=== PATIENT | female | born 1985 | race Caucasian/White ===

== ENCOUNTER 2016-08-21 20:24 | Emergency (ER) | payer OTHER ==
[~2016-08-21] VITALS: Ht 167.6 cm; Wt 100.3 kg
[~2016-08-21 20:24] MED LIST: ALBU0.08 INH; ALBUAER19 INH; CLON0.5T3 PO; CYCL10TA6 PO; DOXE50CA3 PO; FLUT110A INH; FRS/40 PO; HYDR-5688 PO; LTD/40 PO; MORP1TAB12 PO; NAPR-1169 PO; NYST80OI PO; PANT1TAB48 PO; PRAZ2CAP3 PO; PROM25TA9 PO; PROP10TA7 PO; ROPI1TAB PO; TIZA1CAP3 PO
[2016-08-21 20:34] VITALS: TEMP 36.9; Ht 167.6 cm; Wt 100.3 kg
[2016-08-21] MEDS ORDERED: SODIUM CHLORIDE 0.9% 1000ML 1,000 ML IV STA (22:26)
--- NOTE | 2016-08-21 22:34 | EMERGENCY ROOM VISIT NOTE ---
ED Visit Note First contact with patient: 22:09 Resident Physician Supervision Note: I was present with Dr. Harley Carrero during the history and exam. I discussed the case with the resident and agree with the findings and plan as documented in the note. Any exceptions or clarifications are listed here: None Documented By: Renato Dominique
--- NOTE | 2016-08-21 22:42 | EMERGENCY ROOM VISIT NOTE ---
History First contact with patient: 22:09 Chief Complaint: GI ASSESSMENT Stated Complaint: KIDNEY STONE??,NAUSEA,VOMITING & DIARRHEA W/BLOOD Nursing Triage Summary: pt reports [place] X 2 weeks to PCP today noticing some blood in vomit and stool today "I also think I have a kidney stone " I was to [facility] last week for same History of Present Illness The patient is a 30 year old female w/ hx of Nephrolithiasis, Chronic Back pain on Narcotics (Morphine, Dilaudid) Bipolar disorder, PTSD hx of appendectomy, cholecystectomy who presents to the Emergency Room with complaints of 2 week hx of abdominal pain, n/v. Pain is constant, 10/10 , LUQ pain. She went to [facility] last week for evaluation ands was given Zofran and managed as a gastroenteritis and sent home. Since 08/18, She notes additional symptoms including N/V with blood in vomit, Dysuria, hematuria, diarrhea with bright red blood in stool. She also reports DELONG, SOB. Pt denies fevers, chills, chest pain, palpitation. She reports she has not taken her narcotics in week because she has not been able keep pills down. Patient is not on anticoagulation Review of Systems See HPI for pertinent positives & negatives. A total of 10 systems reviewed and were otherwise negative. Past Medical/Surgical History Medical Problems: (1) Anxiety (2) ARF (acute renal failure) (3) Asthma, moderate persistent (4) Bipolar 1 disorder (5) Breast abscess (6) Bright red blood per rectum (7) Chest pain (8) Depression (9) GERD (gastroesophageal reflux disease) (10) GI bleed (11) Gross hematuria (12) Hematemesis (13) Hepatitis C (14) History of MRSA infection (15) PTSD (post-traumatic stress disorder) (16) Recurrent nephrolithiasis Surgical Problems: (1) H/O adenoidectomy (2) History of appendectomy (3) History of section (4) History of cholecystectomy (5) History of tubal ligation (6) S/P IGOR (total abdominal hysterectomy) Family History Diabetes mellitus Hypertension Kidney disease Kidney stones Social History Smoking Status: Current Every Day Smoker Alcohol Use: none Drug Use: none Marital Status: in relationship Housing Status: lives with significant other Current/Historical Medications Scheduled Carisoprodol (Soma), 350 MG PO TID Chlorpromazine Hcl (Thorazine), 25 MG PO HS Chlorpromazine Hcl (Thorazine), 50 MG PO HS Clonazepam (Clonazepam), 1 MG PO BID Gabapentin (Gabapentin), 600 MG PO BID Lurasidone Hcl (Latuda), 60 MG PO HS Mirtazapine (Remeron), 30 MG PO HS Morphine Sulfate (Morphine Sulfate ER), 15 MG PO BID Propranolol (Inderal), 10 MG PO TID Ropinirole Hydrochloride (Requip), 1 MG PO TID [Unknown Neuropathy], 100 MG PO HS Scheduled PRN Albuterol (Ventolin Hfa), 2 PUFFS INH Q4 PRN for Wheezing Albuterol Sulf (Proventil 0.083% 2.5MG/3ML), 2.5 MG INH Q4 PRN for Wheezing Hydromorphone Hcl (Dilaudid), 2 MG PO Q4 PRN for Pain Promethazine (Phenergan ), 12.5 MG PO Q4H PRN for Nausea Allergies Coded Allergies: Buspirone (Verified Allergy, Severe, SWELLING, "CAN'T BREATH", 08/21/16) Hydroxyzine (Verified Allergy, Intermediate, SWELLING, 08/21/16) Shellfish (Verified Allergy, Intermediate, SHORTNESS OF BREATH, 08/21/16) Topiramate (Verified Allergy, Intermediate, SOB AND SWELLING, 08/21/16) Valproic Acid (Verified Allergy, Intermediate, PANIC ATTACK, 08/21/16) Venlafaxine (Verified Allergy, Mild, ANXIETY, 08/21/16) Acetaminophen (Verified Allergy, Unknown, DOSEN'T TAKE DUE TO HEPATITIS, ) Amitriptyline (Verified Allergy, Unknown, swelling, 08/21/16) Amoxicillin (Verified Allergy, Unknown, swelling, 08/21/16) Dichloralphenazone (Verified Allergy, Unknown, swelling, 08/21/16) Diphenhydramine (Verified Allergy, Unknown, swelling, 08/21/16) Ezetimibe (Verified Allergy, Unknown, swelling, 08/21/16) Fish-derived Products (Verified Allergy, Unknown, swelling, 08/21/16) Ibuprofen (Verified Allergy, Unknown, swelling, 08/21/16) Isometheptene (Verified Allergy, Unknown, swelling, 08/21/16) Ketorolac Tromethamine (Verified Allergy, Unknown, swelling, 08/21/16) Meperidine (Verified Allergy, Unknown, swelling, 08/21/16) Metoclopramide (Verified Allergy, Unknown, swelling, 08/21/16) Nalbuphine (Verified Allergy, Unknown, swelling, 08/21/16) Penicillins (Verified Allergy, Unknown, swelling, 08/21/16) Prochlorperazine (Verified Allergy, Unknown, swelling, 08/21/16) Risperidone (Verified Allergy, Unknown, swelling, 08/21/16) Simvastatin (Verified Allergy, Unknown, swelling, 08/21/16) Sumatriptan (Verified Allergy, Unknown, swelling, 08/21/16) Celecoxib (Verified Adverse Reaction, Intermediate, SWELLING, 08/21/16) Physical Exam Vital Signs Date Time Temp Pulse Resp B/P Pulse Ox O2 Delivery O2 Flow Rate FiO2 08/22/16 01:34 77 16 144/89 94 Room Air 08/22/16 00:15 74 08/22/16 00:10 71 24 127/77 95 Room Air 08/21/16 22:58 75 18 127/83 97 Room Air 08/21/16 20:34 36.9 100 18 111/76 100 Room Air Physical Exam GENERAL: alert, well appearing, well nourished, no distress, non-toxic NECK: supple, no nuchal rigidity, no adenopathy, non-tender LUNGS: Clear to auscultation. Normal chest wall mechanics HEART: no murmurs, S1 normal and S2 normal ABDOMEN: abdomen soft, TTP LUQ, normo-active bowel sounds, no masses, no rebound or guarding. BACK: Back is symmetrical on inspection and there is no deformity, no midline tenderness, no CVA tenderness. SKIN: no rashes and no bruising UPPER EXTREMITIES: upper extremities are grossly normal. LOWER EXTREMITIES: No pitting edema. Medical Decision & Procedures Laboratory Results 08/21/16 23:45 Red Blood Count 4.47, Mean Corpuscular Volume 80.8, Mean Corpuscular Hemoglobin 26.2, Mean Corpuscular Hemoglobin Concent 32.4, Mean Platelet Volume 10.3, Neutrophils (%) (Auto) 34.8, Lymphocytes (%) (Auto) 55.2, Monocytes (%) (Auto) 6.2, Eosinophils (%) (Auto) 3.6, Basophils (%) (Auto) 0.2, Neutrophils # (Auto) 1.62, Lymphocytes # (Auto) 2.58, Monocytes # (Auto) 0.29, Eosinophils # (Auto) 0.17, Basophils # (Auto) 0.01 08/21/16 23:45 Test 08/21/16 23:45 White Blood Count 4.67 K/uL (4.8-10.8) Red Blood Count 4.47 M/uL (4.2-5.4) Hemoglobin 11.7 g/dL (12.0-16.0) Hematocrit 36.1 % (37-47) Mean Corpuscular Volume 80.8 fL (80-100) Mean Corpuscular Hemoglobin 26.2 pg (25-34) Mean Corpuscular Hemoglobin Concent 32.4 g/dl (32-36) Platelet Count 176 K/uL (130-400) Mean Platelet Volume 10.3 fL (7.4-10.4) Neutrophils (%) (Auto) 34.8 % Lymphocytes (%) (Auto) 55.2 % Monocytes (%) (Auto) 6.2 % Eosinophils (%) (Auto) 3.6 % Basophils (%) (Auto) 0.2 % Neutrophils # (Auto) 1.62 K/uL (1.4-6.5) Lymphocytes # (Auto) 2.58 K/uL (1.2-3.4) Monocytes # (Auto) 0.29 K/uL (0.11-0.59) Eosinophils # (Auto) 0.17 K/uL (0-0.5) Basophils # (Auto) 0.01 K/uL (0-0.2) RDW Standard Deviation 48.7 fL (36.4-46.3) RDW Coefficient of Variation 16.4 % (11.5-14.5) Immature Granulocyte % (Auto) 0.0 % Immature Granulocyte # (Auto) 0.00 K/uL (0.00-0.02) Red Blood Cell Morphology Unremarkable Anion Gap 9.0 mmol/L (3-11) Est Creatinine Clear Calc Drug Dose 135.9 ml/min Estimated GFR () 130.6 Estimated GFR (Non- 112.7 BUN/Creatinine Ratio 13.5 (10-20) Calcium Level 8.7 mg/dl (8.5-10.1) Total Bilirubin 0.4 mg/dl (0.2-1) Direct Bilirubin 0.1 mg/dl (0-0.2) Aspartate Amino Transf (AST/SGOT) 19 U/L (15-37) Alanine Aminotransferase (ALT/SGPT) 29 U/L (12-78) Alkaline Phosphatase 62 U/L (45-117) Total Protein 6.3 gm/dl (6.4-8.2) Albumin 3.3 gm/dl (3.4-5.0) Lipase 137 U/L (73-393) Medications Administered Medications (Trade) Dose Ordered Sig/Gray Route Start Time Stop Time Status Last Admin Dose Admin Sodium Chloride (Nss 1000ml) 1,000 ml @ 999 mls/hr Q1H1M STAT IV 08/21/16 22:26 08/21/16 23:26 DC 08/21/16 23:35 999 MLS/HR Morphine Sulfate (MoRPHine SULFATE INJ) 4 mg Q15M PRN IV 08/21/16 23:45 09/04/16 23:44 08/22/16 00:33 4 MG Ondansetron HCl (Zofran Inj) 4 mg NOW STAT IV 08/21/16 23:36 08/21/16 23:48 DC 08/22/16 00:06 4 MG Potassium Chloride (Klor-Con M10) 20 meq NOW STAT PO 08/22/16 00:20 08/22/16 00:24 DC 08/22/16 00:33 20 MEQ Hydromorphone HCl (Dilaudid Inj) 0.5 mg NOW STAT IV 08/22/16 01:23 08/22/16 01:24 DC 08/22/16 01:32 0.5 MG Medical Decision Differential diagnoses includes but is not limited to gastritis, peptic ulcer disease, GERD, gallbladder disease, pancreatitis, small bowel obstruction, acute coronary syndrome, pericarditis, ischemic bowel, irritable bowel disease, irritable bowel syndrome, appendicitis, diverticulitis, malignancy, hernia, urinary tract infection, torsion, perforation, trauma, infectious. 30 yo F w/ hx of chronic back pain on morphine Dilaudid at home, hx of cholecystectomy, appendectomy, complaining 2 wk hx of abdominal pain, flank pain, dysuria, hematuria, hematochezia Abdominal Pain -CBC: H/H 11.7/36.1 otherwise unremarkable - Given morphine 4mg x2 - given IV Dilaudid .5 mg - given IV Zofran 4 mg - Stool sample not provided by patient -Urine sample not provided by patient Mild Hypokalemia - Given Oral K 20 meq Patient discharged with followup to [facility] this week sent home with Phenergan prescription 12.5 mg q4 prn Impression Primary Impression: Abdominal pain Additional Impressions: Nausea & vomiting Flank pain Departure Information Dispostion Home / Self-Care Prescriptions Promethazine (Phenergan ) 12.5 Mg Tab 12.5 MG PO Q4H Y for Nausea for 30 Days, #120 TAB Prov: Harley Carrero MD 08/22/16 Referrals Héctor Baxter PA-C (PCP) Patient Instructions My [facility] Resident Tracking Resident Involvement: Resident Care Provided Care Provided: Adult ED Problem Qualifiers
[2016-08-21] MEDS ORDERED: NRN600 PO (23:22)
[2016-08-21] MEDS ORDERED: MRPSR/15 PO (23:22)
[2016-08-21] MEDS ORDERED: MIRT30TA3 PO (23:22)
[2016-08-21] MEDS ORDERED: KLN1X PO (23:22)
[2016-08-21] MEDS ORDERED: HYDR2TAB48 PO (23:22)
[2016-08-21] MEDS ORDERED: PROP10TA7 PO (23:24)
[2016-08-21] MEDS ORDERED: ROPI1TAB PO (23:24)
[2016-08-21] MEDS ORDERED: [UNRECOGNIZED DRUG - REMARK] PO (23:26)
[2016-08-21] MEDS ORDERED: ONDANSETRON INJ 2 MG/ML 2 ML VIAL IV STA (23:36)
[2016-08-21 23:52] LABS: HEMATOCRIT 36.1 % (37-47); MEAN CELL VOLUME 80.8 fL (80-100); MEAN CORPUSCULAR HEMOGLOBIN 26.2 pg (25-34); MEAN CORPUSCULAR HGB CONC 32.4 g/dl (32-36); MEAN PLATELET VOLUME 10.3 fL (7.4-10.4); PLATELET COUNT 176 K/uL (130-400); RED BLOOD COUNT 4.47 M/uL (4.2-5.4); WHITE BLOOD COUNT 4.67 K/uL (4.8-10.8)
[2016-08-22] MEDS: MoRPHine SULFATE 4 MG/ML 1 ML CARP\\VIAL IV PRN ×2 (00:07→00:33)
[2016-08-22 00:14] LABS: BUN/CREATININE RATIO 13.5 (10-20); CALCIUM 8.7 mg/dl (8.5-10.1); CREATININE 0.71 mg/dl (0.60-1.20); POTASSIUM 3.3 mmol/L (3.5-5.1)
[2016-08-22] MEDS ORDERED: POTASSIUM CHLORIDE 10 MEQ TABCR PO STA (00:20)
[2016-08-22 00:21] LABS: BASO % 0.2 %; BASO ABS # 0.01 K/uL (0-0.2); COMPLETE YES; EOS % 3.6 %; LYMPH % 55.2 %; LYMPH ABS # 2.58 K/uL (1.2-3.4); MONO % 6.2 %; NEUT % 34.8 %
[2016-08-22] MEDS ORDERED: HYDROmorphone INJ 0.5 MG/0.5 ML SYR IV STA (01:23)
[2016-08-22] MEDS ORDERED: PROM12.57 PO (01:41)
[2016-08-22 02:00] VITALS: BP 132/93; PULSE 76; O2SAT 95
== END 2016-08-22 02:00 | disposition home or self-care (01) ==
LOC: C.EDB 20:25
DX: R10.12 Left upper quadrant pain (principal); R11.2 Nausea with vomiting, unspecified; N17.9 Acute kidney failure, unspecified; J45.909 Unspecified asthma, uncomplicated; F31.9 Bipolar disorder, unspecified; K21.9 Gastro-esophageal reflux disease without esophagitis; B19.20 Unspecified viral hepatitis C without hepatic coma; Z86.14 Personal history of Methicillin resistant Staphylococcus aureus infection; F43.10 Post-traumatic stress disorder, unspecified; Z87.442 Personal history of urinary calculi; Z83.3 Family history of diabetes mellitus; Z82.49 Family history of ischemic heart disease and other diseases of the circulatory system; Z84.1 Family history of disorders of kidney and ureter; F17.210 Nicotine dependence, cigarettes, uncomplicated; Z79.899 Other long term (current) drug therapy

== ENCOUNTER 2016-09-05 16:26 | Emergency (ER) | payer OTHER ==
[~2016-09-05] VITALS: Ht 167.6 cm; Wt 107.7 kg
[~2016-09-05 16:26] MED LIST changes: -ALBU0.08 INH; -ALBUAER19 INH; -CLON0.5T3 PO; -CYCL10TA6 PO; -DOXE50CA3 PO; -FLUT110A INH; -FRS/40 PO; -HYDR-5688 PO; +HYDR2TAB48 PO; +KLN1X PO; -LTD/40 PO; +MIRT30TA3 PO; -MORP1TAB12 PO; +MRPSR/15 PO; -NAPR-1169 PO; +NRN600 PO; -NYST80OI PO; -PANT1TAB48 PO; -PRAZ2CAP3 PO; +PROM12.57 PO; -PROM25TA9 PO; -TIZA1CAP3 PO; +[UNRECOGNIZED DRUG - REMARK] PO
[2016-09-05 16:37] VITALS: TEMP 36.7; Ht 167.6 cm; Wt 107.7 kg
[2016-09-05] MEDS ORDERED: PROMETHAZINE HCL INJ 25 MG in SODIUM CHLORIDE 0.9% 50ML 50 ML IV STA (16:56)
[2016-09-05] MEDS ORDERED: SODIUM CHLORIDE 0.9% 1000ML 1,000 ML IV STA (16:56)
[2016-09-05] MEDS ORDERED: ALPR1TAB3 PO (17:18)
[2016-09-05] MEDS ORDERED: CLON0.5T3 PO (17:18)
[2016-09-05] MEDS ORDERED: SUCR1TAB29 PO (17:18)
[2016-09-05] MEDS ORDERED: MORP1CAP PO (17:18)
[2016-09-05] MEDS ORDERED: ZONI100C39 PO (17:19)
[2016-09-05] MEDS ORDERED: GI COCKTAIL PO STA (17:35)
[2016-09-05] MEDS ORDERED: FAMOTIDINE 20 MG TAB PO STA (17:35)
[2016-09-05] MEDS ORDERED: SUCRALFATE 1 GM TAB PO STA (17:35)
--- NOTE | 2016-09-05 17:43 | EMERGENCY ROOM VISIT NOTE ---
History Report prepared by Jose De Jesus: Renée Salamanca Under the Supervision of: Dr. Sai Bhatt M.D. First contact with patient: 17:21 Chief Complaint: ABDOMINAL PAIN Stated Complaint: VOMITING BLOOD,EDEMA,BLOODY URINE,ABD PAIN,UR PAIN Nursing Triage Summary: pt states "look at my feet they are swelling, I have pain over my liver and kidney" pain for 2 days saw a PA today but a PA can't do anything. They told me to come here immediatly to be taken care of. this is different belly pain. pt on pain management History of Present Illness The patient is a 30 year old female who presents to the Emergency Room with complaints of worsening edema to the bilateral legs starting 2 days [employer]. The patient states that 2 day ago she noticed that she had swelling in her feet and it has since gone up her legs to her knees. She states that she is now unable to bend her knees secondary to the swelling. The patient states she also has pain in the right upper abdominal quadrant over her liver which is radiating into her back. The patient states that she also has been vomiting and unable to keep her medications down. She states that she has also felt like she has had an increase in frequency for urination and that she sometimes has blood in her urine. The patient states that has had a cholecystectomy, appendectomy and hysterectomy. The patient states that she also has hepatitis C. Source of History: patient Onset: 2 days [employer] Position: leg (bilateral), knee (bilateral) Timing: worsening Associated Symptoms: + abdominal pain (RUQ), + back pain, + urinary symptoms (urinary frequency, blood in urine) Note: Associated symptoms: unable to bend knees, Review of Systems See HPI for pertinent positives & negatives. A total of 10 systems reviewed and were otherwise negative. Past Medical & Surgical Medical Problems: (1) Anxiety (2) ARF (acute renal failure) (3) Asthma, moderate persistent (4) Bipolar 1 disorder (5) Breast abscess (6) Bright red blood per rectum (7) Chest pain (8) Depression (9) GERD (gastroesophageal reflux disease) (10) GI bleed (11) Gross hematuria (12) Hematemesis (13) Hepatitis C (14) History of MRSA infection (15) PTSD (post-traumatic stress disorder) (16) Recurrent nephrolithiasis Surgical Problems: (1) H/O adenoidectomy (2) History of appendectomy (3) History of section (4) History of cholecystectomy (5) History of tubal ligation (6) S/P IGOR (total abdominal hysterectomy) Family History Diabetes mellitus Hypertension Kidney disease Kidney stones Social History Smoking Status: Current Every Day Smoker Alcohol Use: none Drug Use: none Marital Status: in relationship Housing Status: lives with significant other Current/Historical Medications Scheduled Alprazolam (Xanax), 1 MG PO TID Carisoprodol (Soma), 350 MG PO TID Chlorpromazine Hcl (Thorazine), 25 MG PO HS Chlorpromazine Hcl (Thorazine), 50 MG PO HS Gabapentin (Gabapentin), 600 MG PO TID Lurasidone Hcl (Latuda), 60 MG PO HS Mirtazapine (Remeron), 30 MG PO HS Morphine Sulfate (Arabella), 20 MG PO BID Ondasetron Odt (Zofran Odt), 4 MG SL Q6H Propranolol (Inderal), 10 MG PO TID Ropinirole Hydrochloride (Requip), 1 MG PO TID Sucralfate (Carafate), 1 GM PO ACHS Sulfa/Trimethoprim (Bactrim Ds 800MG/160MG), 1 TAB PO BID Zonisamide (Zonegran), 200 MG PO HS Scheduled PRN Albuterol (Ventolin Hfa), 2 PUFFS INH Q4 PRN for Wheezing Albuterol Sulf (Proventil 0.083% 2.5MG/3ML), 2.5 MG INH Q4 PRN for Wheezing Clonazepam (Klonopin), 0.5 MG PO BID PRN for Anxiety Hydromorphone Hcl (Dilaudid), 2 MG PO Q4 PRN for Pain Promethazine (Phenergan ), 12.5 MG PO Q4H PRN for Nausea Allergies Coded Allergies: Buspirone (Verified Allergy, Severe, SWELLING, "CAN'T BREATH", 08/21/16) Hydroxyzine (Verified Allergy, Intermediate, SWELLING, 08/21/16) Shellfish (Verified Allergy, Intermediate, SHORTNESS OF BREATH, 08/21/16) Topiramate (Verified Allergy, Intermediate, SOB AND SWELLING, 08/21/16) Valproic Acid (Verified Allergy, Intermediate, PANIC ATTACK, 08/21/16) Venlafaxine (Verified Allergy, Mild, ANXIETY, 08/21/16) Acetaminophen (Verified Allergy, Unknown, DOSEN'T TAKE DUE TO HEPATITIS, ) Amitriptyline (Verified Allergy, Unknown, swelling, 08/21/16) Amoxicillin (Verified Allergy, Unknown, swelling, 08/21/16) Dichloralphenazone (Verified Allergy, Unknown, swelling, 08/21/16) Diphenhydramine (Verified Allergy, Unknown, swelling, 08/21/16) Ezetimibe (Verified Allergy, Unknown, swelling, 08/21/16) Fish-derived Products (Verified Allergy, Unknown, swelling, 08/21/16) Ibuprofen (Verified Allergy, Unknown, swelling, 08/21/16) Isometheptene (Verified Allergy, Unknown, swelling, 08/21/16) Ketorolac Tromethamine (Verified Allergy, Unknown, swelling, 08/21/16) Meperidine (Verified Allergy, Unknown, swelling, 08/21/16) Metoclopramide (Verified Allergy, Unknown, swelling, 08/21/16) Nalbuphine (Verified Allergy, Unknown, swelling, 08/21/16) Penicillins (Verified Allergy, Unknown, swelling, 08/21/16) Prochlorperazine (Verified Allergy, Unknown, swelling, 08/21/16) Risperidone (Verified Allergy, Unknown, swelling, 08/21/16) Simvastatin (Verified Allergy, Unknown, swelling, 08/21/16) Sumatriptan (Verified Allergy, Unknown, swelling, 08/21/16) Celecoxib (Verified Adverse Reaction, Intermediate, SWELLING, 08/21/16) Physical Exam Vital Signs Date Time Temp Pulse Resp B/P Pulse Ox O2 Delivery O2 Flow Rate FiO2 09/05/16 21:08 78 18 106/61 96 09/05/16 19:54 65 18 109/61 100 Room Air 09/05/16 18:38 72 09/05/16 18:22 75 21 97 Room Air 09/05/16 18:21 97 Room Air 09/05/16 16:37 36.7 100 18 120/80 96 Room Air Physical Exam GENERAL: Patient is a healthy-appearing well-nourished HEAD: Normocephalic atraumatic EYES: Ocular movements intact pupils equal and react to light OROPHARYNX mucous membranes are moist no exudates present no erythema or edema present NECK: Supple no nuchal rigidity CHEST: Good equal expansion LUNGS: Clear and equal to auscultation CARDIAC: Normal S1 and S2 ABDOMEN: Soft, nontender on examination, no guarding BACK: No CVA tenderness EXTREMITIES: No pain upon palpation normal muscle strength in all groups no clubbing cyanosis or edema NEURO: Patient is following commands is answering questions appropriately. Alert and oriented x3 Cranial Nerves 2-12 grossly intact Medical Decision & Procedures ER Provider Diagnostic Interpretation: X-ray results as stated below per interpretation by me and the radiologist: CHEST AND ABDOMEN 2 VIEWS HISTORY: Pt c/o epigastric pain COMPARISON: Chest x-ray and abdomen and pelvis CT 05/01/2016. FINDINGS: The lungs are clear. The cardiomediastinal silhouette is within normal limits. There is no pneumoperitoneum or pneumatosis. The bowel gas pattern is unremarkable. No evidence for bowel obstruction. No pathologic calcifications. Cholecystectomy. Suture material within the right lower quadrant consistent with prior appendectomy. Moderate to large amount well-formed stool seen within the colon. IMPRESSION: 1. No acute process within the chest. No evidence for bowel obstruction. 2. Prior cholecystectomy and appendectomy. 3. Moderate to large amount of well-formed stool seen within the colon. 4. No renal or ureteral calculi. Electronically signed by: Andrés Kirkpatrick M.D. 09/05/2016 8:15 PM Dictated Date/Time: 09/05/2016 8:12 PM US results as stated below per my review and radiologist interpretation: BILATERAL LOWER EXTREMITY VENOUS DOPPLER HISTORY: Pt c/o B/l lower extremity pain COMPARISON STUDY: None. FINDINGS: There is normal compressibility, flow, and augmentation within the bilateral lower extremity deep venous systems. IMPRESSION: No DVT within the right or left lower extremity. Electronically signed by: Andrés Kirkpatrick M.D. 09/05/2016 7:43 PM Dictated Date/Time: 09/05/2016 7:43 PM Laboratory Results 09/05/16 18:30 Red Blood Count 3.86, Mean Corpuscular Volume 81.9, Mean Corpuscular Hemoglobin 26.2, Mean Corpuscular Hemoglobin Concent 32.0, Mean Platelet Volume 9.5, Neutrophils (%) (Auto) 41.5, Lymphocytes (%) (Auto) 44.4, Monocytes (%) (Auto) 8.3, Eosinophils (%) (Auto) 5.5, Basophils (%) (Auto) 0.3, Neutrophils # (Auto) 1.60, Lymphocytes # (Auto) 1.71, Monocytes # (Auto) 0.32, Eosinophils # (Auto) 0.21, Basophils # (Auto) 0.01 09/05/16 18:30 Test 09/05/16 17:55 09/05/16 18:30 Urine Color YELLOW Urine Appearance CLOUDY (CLEAR) Urine pH 7.5 (4.5-7.5) Urine Specific [place] 1.017 (1.000-1.030) Urine Protein NEG (NEG) Urine Glucose (UA) NEG (NEG) Urine Ketones NEG (NEG) Urine Occult Blood NEG (NEG) Urine Nitrite NEG (NEG) Urine Bilirubin NEG (NEG) Urine Urobilinogen NEG (NEG) Urine Leukocyte Esterase SMALL (NEG) Urine WBC (Auto) 10-30 /hpf (0-5) Urine RBC (Auto) 0-4 /hpf (0-4) Urine Hyaline Casts (Auto) 1-5 /lpf (0-5) Urine Epithelial Cells (Auto) >30 /lpf (0-5) Urine Bacteria (Auto) 2+ (NEG) White Blood Count 3.85 K/uL (4.8-10.8) Red Blood Count 3.86 M/uL (4.2-5.4) Hemoglobin 10.1 g/dL (12.0-16.0) Hematocrit 31.6 % (37-47) Mean Corpuscular Volume 81.9 fL (80-100) Mean Corpuscular Hemoglobin 26.2 pg (25-34) Mean Corpuscular Hemoglobin Concent 32.0 g/dl (32-36) Platelet Count 219 K/uL (130-400) Mean Platelet Volume 9.5 fL (7.4-10.4) Neutrophils (%) (Auto) 41.5 % Lymphocytes (%) (Auto) 44.4 % Monocytes (%) (Auto) 8.3 % Eosinophils (%) (Auto) 5.5 % Basophils (%) (Auto) 0.3 % Neutrophils # (Auto) 1.60 K/uL (1.4-6.5) Lymphocytes # (Auto) 1.71 K/uL (1.2-3.4) Monocytes # (Auto) 0.32 K/uL (0.11-0.59) Eosinophils # (Auto) 0.21 K/uL (0-0.5) Basophils # (Auto) 0.01 K/uL (0-0.2) RDW Standard Deviation 51.3 fL (36.4-46.3) RDW Coefficient of Variation 17.0 % (11.5-14.5) Immature Granulocyte % (Auto) 0.0 % Immature Granulocyte # (Auto) 0.00 K/uL (0.00-0.02) Anion Gap 7.0 mmol/L (3-11) Est Creatinine Clear Calc Drug Dose 159.1 ml/min Estimated GFR () 137.6 Estimated GFR (Non- 118.7 BUN/Creatinine Ratio 10.5 (10-20) Calcium Level 8.4 mg/dl (8.5-10.1) Total Bilirubin 0.1 mg/dl (0.2-1) Aspartate Amino Transf (AST/SGOT) 24 U/L (15-37) Alanine Aminotransferase (ALT/SGPT) 22 U/L (12-78) Alkaline Phosphatase 69 U/L (45-117) Total Creatine Kinase 244 U/L (26-192) Creatine Kinase MB 2.2 ng/ml (0.5-3.6) Creatine Kinase MB Ratio 0.9 (0-3.0) Troponin I < 0.015 ng/ml (0-0.045) Pro-B-Type Natriuretic Peptide 681 pg/ml (0-450) Total Protein 5.8 gm/dl (6.4-8.2) Albumin 3.0 gm/dl (3.4-5.0) Globulin 2.8 gm/dl (2.5-4.0) Albumin/Globulin Ratio 1.1 (0.9-2) Labs reviewed by ED physician. Medications Administered Medications (Trade) Dose Ordered Sig/Gray Route Start Time Stop Time Status Last Admin Dose Admin Famotidine (Pepcid Tab) 20 mg NOW STAT PO 09/05/16 17:35 09/05/16 17:39 DC 09/05/16 17:50 20 MG Sucralfate (Carafate Tab) 1 gm NOW STAT PO 09/05/16 17:35 09/05/16 17:39 DC 09/05/16 17:49 1 GM Lidocaine HCl (Viscous Lidocaine 2% Soln) 20 ml STK-MED ONCE .ROUTE 09/05/16 17:53 09/05/16 17:54 DC 09/05/16 17:50 20 ML Al Hydroxide/Mg Hydroxide (Maalox Susp) 30 ml STK-MED ONCE .ROUTE 09/05/16 17:53 09/05/16 17:54 DC 09/05/16 17:50 30 ML Trimethoprim/ Sulfamethoxazole (Septra Ds 800/ 160MG Tab) 1 tab NOW STAT PO 09/05/16 18:19 09/05/16 18:20 DC 09/05/16 18:41 1 TAB Dicyclomine HCl (Bentyl Inj) 20 mg NOW ONCE IM 09/05/16 18:30 09/05/16 18:31 DC 09/05/16 18:42 20 MG Ondansetron HCl (Zofran Odt) 4 mg ONE STAT PO 09/05/16 18:21 09/05/16 18:23 DC 09/05/16 18:41 4 MG Magnesium Citrate (Citrate Of Magnesia Soln) 296 ml NOW STAT PO 09/05/16 20:17 09/05/16 20:18 DC 09/05/16 20:17 296 ML Ondansetron HCl (ZOFRAN ODT 4MG Home Pack) 1 homepack UD ONCE PO 09/05/16 20:30 09/05/16 20:32 DC 09/05/16 20:37 1 HOMEPACK ECG Indication: abdominal pain Rate (beats per minute): 73 Rhythm: normal sinus Findings: no acute ischemic change, no ectopy ED Course 1729: Past medical records reviewed. The patient was evaluated in room C1B. A complete history and physical examination was performed. 1735: Ordered GI Cocktail 24 ml PO. 1753: The nursing staff informed me that the patient stated that after receiving the medication s, that she was going to take her own medications. 1818: I reevaluated the patent and she states she is still in pain. I repeated the abdominal examination on the patient and it was nontender 181: Ordered Trimethoprim/ Sulfamethoxazole 1 tab PO, Rocephin Inj 1 gm IV. 182: Ordered Zofran Odt 4 mg PO, Bentyl Inj 20 mg IM. 1830: Ordered Bentyl Inj 20 mg IM. 2017: Ordered Citrate of Magnesia Soln 296 ml PO. 2029: Ordered Ondansetron HCl 1 homepack PO. 2034: Upon reexamination the patient is hemodynamically stable. I discussed results and treatment plan with the patient. She verbalizes agreement and understanding. The patient is ready for discharge. Medical Decision Differential diagnosis: Etiologies such as DVT, musculoskeletal, infection, joint effusion, trauma, lymphedema, idiopathic, CHF, as well as others were entertained. This is a 30-year-old female who presents emergency department complaining of epigastric pain. The patient has seen multiple doctors within the past 4 days and has a large amount of narcotic medication prescribed to her from a doctor in [place]. In addition the patient was recently at [facility] 2 days ago and apparently was there before her visit today. I will note that she is on the no narcotics treatment plan. For this reason the patient was given a GI cocktail, Pepcid and Carafate. She has a normal CBC normal renal profile normal liver profile normal lipase. Serial abdominal examinations were performed on the patient in the [facility] department and no tended patient exhibit surgical abdomen. The patient was requesting more pain medication and therefore was given Bentyl. She does appear to have a urinary tract infection and was also given Bactrim. The patient was sent for ultrasounds of her legs as she is complaining of bilateral swelling. This did not show any evidence of a DVT and the patient has no evidence of congestive heart failure on her EKG or chest x-ray. Based on these findings I felt that the patient was safe enough to be discharged home. I did recommend magnesium citrate cleanout for the patient's constipation. The patient was requesting Xanax for her anxiety however I am uncomfortable giving this to this patient as she took her own pain medication while she was here in the emergency department which includes Dilaudid. [place] Drug Monitoring Program Search Results: patient reviewed within database Drug Monitoring Findings: 90 Dilaudid tablets 4 days ago Morphine 60 tablets 4 days ago Carisoprodol 60 tablets 4 days ago Clonazepam 60 tablets august 18 Impression Primary Impression: Constipation Additional Impressions: Abdominal pain UTI (urinary tract infection) Scribe Attestation The scribe's documentation has been prepared under my direction and personally reviewed by me in its entirety. I confirm that the note above accurately reflects all work, treatment, procedures, and medical decision making performed by me. Departure Information Dispostion Home / Self-Care Prescriptions Sulfa/Trimethoprim (Bactrim Ds 800MG/160MG) Tab 1 TAB PO BID for 7 Days, #14 TAB Prov: Sai Bhatt MD 09/05/16 Ondasetron Odt (ZOFRAN ODT) 4 Mg Tab 4 MG SL Q6H for Nausea, #6 TAB Prov: Sai Bhatt MD 09/05/16 Referrals No Doctor, Assigned (PCP) Forms Call Back Authorization, HOME CARE DOCUMENTATION FORM, IMPORTANT VISIT INFORMATION Patient Instructions My [facility] [place] [employer] Additional Instructions Take 1/2 bottle of Mag Citrate Repeat second half in six hours Take 10 oz bottle of miralax; Add to 16 oz of gatorade Drink continuously until moving creamy stools Clear liquid diet for next 48 hours You have been examined and treated today on an emergency basis only. This is not a substitute for, or an effort to provide, complete comprehensive medical care. It is impossible to recognize and treat all injuries or illnesses in a single emergency department visit. It is therefore important that you follow up closely with your PCP. Call as soon as possible for an appointment. Thank you for your time and consideration. I look forward to speaking with you again soon. Please don't hesitate to call us if you have any questions. Problem Qualifiers Primary Impression: Constipation Constipation type: unspecified constipation type Qualified Codes: K59.00 - Constipation, unspecified Additional Impressions: Abdominal pain Abdominal location: epigastric Qualified Codes: R10.13 - Epigastric pain UTI (urinary tract infection) Urinary tract infection type: acute cystitis Hematuria presence: with hematuria Qualified Codes: N30.01 - Acute cystitis with hematuria
[2016-09-05] MEDS ORDERED: LIDOCAINE HCL 2% VISC SOLN 20 ML UDC ONE (17:53)
[2016-09-05] MEDS ORDERED: ALUMINUM/MAGNESIUM SUSP 30 ML UDC ONE (17:53)
[2016-09-05 18:10] LABS: URINE APPEARANCE CLOUDY (CLEAR); URINE BILIRUBIN NEG (NEG); URINE COLOR YELLOW; URINE EPITHELIAL CELL AUTO >30 /lpf (0-5); URINE NITRITE NEG (NEG); URINE PH 7.5 (4.5-7.5); URINE SPECIFIC GRAVITY 1.017 (1.000-1.030); UROBILINOGEN NEG (NEG)
[2016-09-05 18:13] LABS: MANUAL MICROSCOPIC REQUIRED? NO; REVIEW REQ? NO
[2016-09-05] MEDS ORDERED: CEFTRIAXONE SOD INJ 1 GM ADDVIAL IV STA (18:19)
[2016-09-05] MEDS ORDERED: SULFAMETHOXAZOLE/TRIMETHOPRIM DS 800/160MG TAB PO STA (18:19)
[2016-09-05 18:21] VITALS: O2SAT 97
[2016-09-05] MEDS ORDERED: ONDANSETRON 4MG OD TAB PO STA (18:21)
[2016-09-05] MEDS ORDERED: DICYCLOMINE HCL 10 MG/ML 2 ML AMP IM ONE (18:30)
[2016-09-05 18:43] LABS: BASO % 0.3 %; BASO ABS # 0.01 K/uL (0-0.2); COMPLETE YES; EOS % 5.5 %; HEMATOCRIT 31.6 % (37-47); LYMPH % 44.4 %; LYMPH ABS # 1.71 K/uL (1.2-3.4); MEAN CELL VOLUME 81.9 fL (80-100); MEAN CORPUSCULAR HEMOGLOBIN 26.2 pg (25-34); MEAN PLATELET VOLUME 9.5 fL (7.4-10.4); MONO % 8.3 %; NEUT % 41.5 %; PLATELET COUNT 219 K/uL (130-400); RED BLOOD COUNT 3.86 M/uL (4.2-5.4); WHITE BLOOD COUNT 3.85 K/uL (4.8-10.8)
[2016-09-05 19:02] LABS: ALT/SGPT 22 U/L (12-78); BLOOD UREA NITROGEN 7 mg/dl (7-18); BUN/CREATININE RATIO 10.5 (10-20); CARBON DIOXIDE 28 mmol/L (21-32); CHLORIDE 110 mmol/L (98-107); CREATININE 0.63 mg/dl (0.60-1.20); GLUCOSE 92 mg/dl (70-99); POTASSIUM 3.8 mmol/L (3.5-5.1); SODIUM 145 mmol/L (136-145)
[2016-09-05 19:07] LABS: ALB/GLOB RATIO 1.1 (0.9-2); ALKALINE PHOSPHATASE 69 U/L (45-117); AST/SGOT 24 U/L (15-37); CKMB/CK RATIO 0.9 (0-3.0)
--- NOTE | 2016-09-05 19:46 | DIAGNOSTIC IMAGING REPORT ---
BILATERAL LOWER EXTREMITY VENOUS DOPPLER HISTORY: Pt c/o B/l lower extremity pain COMPARISON STUDY: None. FINDINGS: There is normal compressibility, flow, and augmentation within the bilateral lower extremity deep venous systems. IMPRESSION: No DVT within the right or left lower extremity. Electronically signed by: Andrés Kirkpatrick M.D. 09/05/2016 7:43 PM Dictated Date/Time: 09/05/2016 7:43 PM
[2016-09-05] MEDS ORDERED: MAGNESIUM CITRATE 296 ML/BTL PO STA (20:17)
--- NOTE | 2016-09-05 20:17 | DIAGNOSTIC IMAGING REPORT ---
CHEST AND ABDOMEN 2 VIEWS HISTORY: Pt c/o epigastric pain COMPARISON: Chest x-ray and abdomen and pelvis CT 05/01/2016. FINDINGS: The lungs are clear. The cardiomediastinal silhouette is within normal limits. There is no pneumoperitoneum or pneumatosis. The bowel gas pattern is unremarkable. No evidence for bowel obstruction. No pathologic calcifications. Cholecystectomy. Suture material within the right lower quadrant consistent with prior appendectomy. Moderate to large amount well-formed stool seen within the colon. IMPRESSION: 1. No acute process within the chest. No evidence for bowel obstruction. 2. Prior cholecystectomy and appendectomy. 3. Moderate to large amount of well-formed stool seen within the colon. 4. No renal or ureteral calculi. Electronically signed by: Andrés Kirkpatrick M.D. 09/05/2016 8:15 PM Dictated Date/Time: 09/05/2016 8:12 PM
[2016-09-05] MEDS ORDERED: ONDA4TAB10 SL (20:27)
[2016-09-05] MEDS ORDERED: ONDANSETRON HOME PACK 4MG OD TAB PO ONE (20:30)
[2016-09-05] MEDS ORDERED: SULF800T23 PO (20:30)
[2016-09-05 21:08] VITALS: BP 106/61; PULSE 78; O2SAT 96
[2016-09-05] MEDS ORDERED: CHLO1TAB19 PO (23:22)
[2016-09-05] MEDS ORDERED: LURA1TAB3 PO (23:22)
[2016-09-05] MEDS ORDERED: CHLO1TAB15 PO (23:22)
[2016-09-05] MEDS ORDERED: CARI350T28 PO (23:24)
[2016-09-05] MEDS ORDERED: PRVHFAIN INH (23:25)
[2016-09-05] MEDS ORDERED: ALBINS/ INH (23:25)
== END 2016-09-05 21:09 | disposition home or self-care (01) ==
LOC: C.EDB 16:29 → C.EDC 21:09
DX: K59.00 Constipation, unspecified (principal); N39.0 Urinary tract infection, site not specified; R10.9 Unspecified abdominal pain; R60.0 Localized edema; F31.9 Bipolar disorder, unspecified; F17.210 Nicotine dependence, cigarettes, uncomplicated

== ENCOUNTER 2017-05-06 15:34 | Emergency (ER) | payer OTHER ==
[~2017-05-06] VITALS: Ht 167.6 cm; Wt 105.5 kg
[~2017-05-06 15:34] MED LIST changes: +CHLO1TAB19 PO; -HYDR2TAB48 PO; -KLN1X PO; +LURA1TAB3 PO; -MIRT30TA3 PO; -MRPSR/15 PO; -NRN600 PO; -PROM12.57 PO; +PRVHFAIN INH; -ROPI1TAB PO; -[UNRECOGNIZED DRUG - REMARK] PO
[2017-05-06 15:41] VITALS: TEMP 36.9; Ht 167.6 cm; Wt 105.5 kg
[2017-05-06] MEDS ORDERED: ALBUT/IPRATROP 3MG/0.5MG NEB 3 ML VIAL INH STA (15:59)
[2017-05-06] MEDS ORDERED: SODIUM CHLORIDE 0.9% 1000ML 1,000 ML IV STA (15:59)
--- NOTE | 2017-05-06 16:02 | EMERGENCY ROOM VISIT NOTE ---
History Report prepared by Jose De Jesus: Riky Rangel Under the Supervision of: Dr. Renato Dominique D.O. First contact with patient: 15:52 Chief Complaint: FALL Stated Complaint: FELL, HIT HEAD/BACK/LEG/HAND, POSSIBLE BRONCHITIS History of Present Illness The patient is a 31 year old female with a history of COPD, asthma, hepatitis C , and chronic bronchitis who presents to the Emergency Room with complaints of persistent unsteadiness that started yesterday. She says that a week ago, [place] and while hunkered down, she went to stand up and fell face first [place], hitting her head. She states that she does not remember anything after hitting her head that day, but knows that she ended up hunting while wet the rest of the day, and ever since that day, she has been very sick with a bad cough. She says that she knows she has bronchitis again. The patient notes that starting yesterday, she has been falling a lot, and has been dizzy and lightheaded. She adds that she fell 15 times yesterday. The patient notes that during her last fall yesterday, she hit the right side of her head and blacked out. She notes that she does not know why she has been falling. The patient adds that she has been having blurry vision all of today, and she has had persistent back pain and left thigh pain after the fall last week. She adds that she has a history of migraines, and has a migraine right now. The patient states that her left hand was swollen since the fall last week, but it is not as swollen anymore. She notes that she is not on any blood thinners. She has a history of a hysterectomy. Source of History: patient Onset: Yesterday Position: other (global - unsteadiness) Symptom Intensity: fell 15 times yesterday Timing: other (persistent) Associated Symptoms: + LOC, + headache, + cough, + back pain Note: Associated symptoms: Left thigh pain. Dizziness, lightheadedness, blurry vision. Review of Systems See HPI for pertinent positives & negatives. A total of 10 systems reviewed and were otherwise negative. Past Medical & Surgical Medical Problems: (1) Anxiety (2) ARF (acute renal failure) (3) Asthma, moderate persistent (4) Bipolar 1 disorder (5) Breast abscess (6) Bright red blood per rectum (7) Chest pain (8) Depression (9) GERD (gastroesophageal reflux disease) (10) GI bleed (11) Gross hematuria (12) Hematemesis (13) Hepatitis C (14) History of MRSA infection (15) PTSD (post-traumatic stress disorder) (16) Recurrent nephrolithiasis Surgical Problems: (1) H/O adenoidectomy (2) History of appendectomy (3) History of section (4) History of cholecystectomy (5) History of tubal ligation (6) S/P IGOR (total abdominal hysterectomy) Family History Diabetes mellitus Hypertension Kidney disease Kidney stones Social History Smoking Status: Current Every Day Smoker Alcohol Use: none Drug Use: none Marital Status: in relationship Housing Status: lives with significant other Current/Historical Medications Scheduled Alprazolam (Xanax), 1 MG PO TID Carisoprodol (Soma), 350 MG PO TID Chlorpromazine Hcl (Thorazine), 25 MG PO BID Chlorpromazine Hcl (Thorazine), 50 MG PO HS Gabapentin (Gabapentin), 1,200 MG PO TID Levofloxacin (Levaquin), 500 MG PO DAILY Lurasidone Hcl (Latuda), 80 MG PO DAILY Mirtazapine (Remeron), 30 MG PO HS Pregabalin (Lyrica), 200 MG PO TID Propranolol (Inderal), 40 MG PO BID Ropinirole Hydrochloride (Requip), 1 MG PO TID Sucralfate (Carafate), 1 GM PO ACHS Zonisamide (Zonegran), 300 MG PO HS Scheduled PRN Albuterol Sulf (Proventil 0.083% 2.5MG/3ML), 2.5 MG INH Q4 PRN for Wheezing Clonazepam (Klonopin), 0.5 MG PO BID PRN for Anxiety Hydromorphone Hcl (Dilaudid), 2 MG PO Q4 PRN for Pain Morphine Sulfate (Arabella), 20 MG PO BID PRN for Pain [Combivent], 2 PUFFS INH Q4 PRN for SOB/Wheezing Allergies Coded Allergies: Buspirone (Verified Allergy, Severe, SWELLING, "CAN'T BREATH", 08/21/16) Hydroxyzine (Verified Allergy, Intermediate, SWELLING, 08/21/16) Shellfish (Verified Allergy, Intermediate, SHORTNESS OF BREATH, 08/21/16) Topiramate (Verified Allergy, Intermediate, SOB AND SWELLING, 08/21/16) Valproic Acid (Verified Allergy, Intermediate, PANIC ATTACK, 08/21/16) Venlafaxine (Verified Allergy, Mild, ANXIETY, 08/21/16) Acetaminophen (Verified Allergy, Unknown, DOSEN'T TAKE DUE TO HEPATITIS, ) Amitriptyline (Verified Allergy, Unknown, swelling, 08/21/16) Amoxicillin (Verified Allergy, Unknown, swelling, 08/21/16) Dichloralphenazone (Verified Allergy, Unknown, swelling, 08/21/16) Diphenhydramine (Verified Allergy, Unknown, swelling, 08/21/16) Ezetimibe (Verified Allergy, Unknown, swelling, 08/21/16) Fish-derived Products (Verified Allergy, Unknown, swelling, 08/21/16) Ibuprofen (Verified Allergy, Unknown, swelling, 08/21/16) Isometheptene (Verified Allergy, Unknown, swelling, 08/21/16) Ketorolac Tromethamine (Verified Allergy, Unknown, swelling, 08/21/16) Meperidine (Verified Allergy, Unknown, swelling, 08/21/16) Metoclopramide (Verified Allergy, Unknown, swelling, 08/21/16) Nalbuphine (Verified Allergy, Unknown, swelling, 08/21/16) Penicillins (Verified Allergy, Unknown, swelling, 08/21/16) Prochlorperazine (Verified Allergy, Unknown, swelling, 08/21/16) Risperidone (Verified Allergy, Unknown, swelling, 08/21/16) Simvastatin (Verified Allergy, Unknown, swelling, 08/21/16) Sumatriptan (Verified Allergy, Unknown, swelling, 08/21/16) Celecoxib (Verified Adverse Reaction, Intermediate, SWELLING, 08/21/16) Physical Exam Vital Signs Date Time Temp Pulse Resp B/P (MAP) Pulse Ox O2 Delivery O2 Flow Rate FiO2 05/06/17 19:49 71 20 114/72 97 05/06/17 19:04 69 28 111/55 96 Room Air 05/06/17 18:09 57 05/06/17 17:37 98 Room Air 05/06/17 17:33 63 118/77 64 105/68 78 133/86 05/06/17 17:30 63 18 118/77 99 Room Air 05/06/17 15:41 36.9 70 18 149/95 98 Room Air Physical Exam GENERAL: Patient is awake, alert, and in no acute distress. Patient is resting comfortably and showing no signs of anxiety EYES: Pupils were dilated and minimally reactive to light bilaterally. Extraocular muscles intact. EARS, NOSE, MOUTH AND THROAT: The nose is without any evidence of any deformity. Mucous membranes are moist tongue is midline NECK: The neck is nontender and supple. RESPIRATORY: Normal respiratory effort is noted there is no evidence of wheezing rhonchi or rales CARDIOVASCULAR: Regular rate and rhythm noted there no murmurs rubs or gallops normal S1 normal S2 GASTROINTESTINAL: The abdomen is soft. Bowel sounds are present in all quadrants. Abdomen is nontender PELVIS: The Pelvis is stable. No tenderness to palpation is noted. BACK: Diffuse tenderness to palpation but range of motion appeared intact. MUSCULOSKELETAL/EXTREMITIES: There was swelling on the dorsum of the left hand, no ecchymosis noted. No deformity of lower extremities. SKIN: There is no obvious evidence of any rash. There are no petechiae, pallor or cyanosis noted. NEUROLOGIC: Patient is awake alert and oriented x3 strength is symmetric patellar reflexes are 2+ bilaterally Medical Decision & Procedures ER Provider Diagnostic Interpretation: Radiology results as stated below per my review and radiologist interpretation: PELVIS 1 OR 2 VIEW ROUTINE, L FEMUR 2 VIEWS ROUTINE HISTORY: 31 years-old Female fall acute pelvic and left hip pain status post fall COMPARISON: Acute abdominal series radiographs 09/05/2016 TECHNIQUE: Single AP view of the pelvis with 2 views of the left femur FINDINGS: PELVIS: No acute fracture, dislocation or significant degenerative changes. Bilateral hips are located. Soft tissues are unremarkable. Surgical suture material is noted over the right lower abdomen. LEFT FEMUR: No acute fracture, dislocation or significant degenerative changes. Soft tissues are unremarkable. Knee joint appears intact. IMPRESSION: 1. No acute fracture or subluxation. 2. No significant degenerative changes. The above report was generated using voice recognition software. It may contain grammatical, syntax or spelling errors. Electronically signed by: Ammon Ring M.D. 05/06/2017 6:43 PM Dictated Date/Time: 05/06/2017 6:42 PM HEAD WITHOUT CONTRAST (CT) CLINICAL HISTORY: 31 years-old Female with EVALUATE ALTERED MENTAL STATUS/WEAKNESS. Acute altered mental status with recent fall TECHNIQUE: Multiple axial CT images of the head were obtained without contrast. A dose lowering technique was utilized adhering to the principles of ALARA. CT DOSE: 1016.79 mGy.cm COMPARISON: CT cervical spine of same day, CT head 03/18/2013. FINDINGS: No acute intracranial hemorrhage, midline shift, intracranial mass, hydrocephalus, territorial ischemia or abnormal extra-axial collection. The calvarium is intact. The mastoid air cells, and middle ear cavities are clear. Mild mucosal thickening of the imaged ethmoid air cells. IMPRESSION: No acute intracranial abnormality. The above report was generated using voice recognition software. It may contain grammatical, syntax or spelling errors. Electronically signed by: Ammon Ring M.D. 05/06/2017 5:10 PM Dictated Date/Time: 05/06/2017 5:08 PM L HAND MIN 3 VIEWS ROUTINE HISTORY: 31 years-old Female fall acute left hand pain status post fall COMPARISON: None available TECHNIQUE: 3 views of the left hand FINDINGS: Mild dorsal hand soft tissue swelling. There is no acute fracture, dislocation, significant degenerative changes or opaque foreign body. IMPRESSION: Mild dorsal hand soft tissue swelling without acute bony abnormality. The above report was generated using voice recognition software. It may contain grammatical, syntax or spelling errors. Electronically signed by: Ammon Ring M.D. 05/06/2017 6:41 PM Dictated Date/Time: 05/06/2017 6:40 PM PELVIS 1 OR 2 VIEW ROUTINE, L FEMUR 2 VIEWS ROUTINE HISTORY: 31 years-old Female fall acute pelvic and left hip pain status post fall COMPARISON: Acute abdominal series radiographs 09/05/2016 TECHNIQUE: Single AP view of the pelvis with 2 views of the left femur FINDINGS: PELVIS: No acute fracture, dislocation or significant degenerative changes. Bilateral hips are located. Soft tissues are unremarkable. Surgical suture material is noted over the right lower abdomen. LEFT FEMUR: No acute fracture, dislocation or significant degenerative changes. Soft tissues are unremarkable. Knee joint appears intact. IMPRESSION: 1. No acute fracture or subluxation. 2. No significant degenerative changes. The above report was generated using voice recognition software. It may contain grammatical, syntax or spelling errors. Electronically signed by: Ammon Ring M.D. 05/06/2017 6:43 PM Dictated Date/Time: 05/06/2017 6:42 PM CHEST 2 VIEWS ROUTINE HISTORY: 31 years-old Female fall acute chest congestion with recent fall COMPARISON: Acute abdominal series radiographs 09/05/2016 TECHNIQUE: PA and lateral views of the chest FINDINGS: Cardiac mediastinal and hilar silhouettes are within normal limits. No pneumothorax, pleural effusion, focal airspace consolidation or overt pulmonary edema. The bones of the chest appear grossly intact. Surgical clips of the right upper abdomen suggest prior cholecystectomy. IMPRESSION: No acute cardiopulmonary process. The above report was generated using voice recognition software. It may contain grammatical, syntax or spelling errors. Electronically signed by: Ammon Ring M.D. 05/06/2017 6:45 PM Dictated Date/Time: 05/06/2017 6:44 PM CERVICAL SPINE W/O CLINICAL HISTORY: 31 years-old Female with fall. Acute neck pain with recent fall COMPARISON: CT head of same day. TECHNIQUE: Multiple axial CT images of the cervical spine were obtained without contrast. A dose lowering technique was utilized adhering to the principles of ALARA. FINDINGS: Vertebral body heights and alignment are normal. No fracture or subluxation is identified. The intervertebral disc spaces are preserved. No significant central canal or neural foraminal stenosis is identified. Mild facet arthrosis is noted bilaterally at C6-C7 and C7-T1. The cervical soft tissues appear unremarkable. Partially imaged groundglass opacities of the left lung apex are noted. Thyroid appears enlarged and heterogeneous. IMPRESSION: 1. No acute cervical spine fracture or subluxation. 2. Enlarged heterogeneous thyroid suggests multinodular goiter. 3. Partially imaged groundglass opacities of the left lung apex are nonspecific and may reflect scarring, pneumonitis or atelectasis. The above report was generated using voice recognition software. It may contain grammatical, syntax or spelling errors. Electronically signed by: Ammon Ring M.D. 05/06/2017 5:17 PM Dictated Date/Time: 05/06/2017 5:12 PM Laboratory Results 05/06/17 16:49 Red Blood Count 4.06, Mean Corpuscular Volume 81.8, Mean Corpuscular Hemoglobin 25.6, Mean Corpuscular Hemoglobin Concent 31.3, Mean Platelet Volume 10.1, Neutrophils (%) (Auto) 50.6, Lymphocytes (%) (Auto) 36.6, Monocytes (%) (Auto) 7.7, Eosinophils (%) (Auto) 4.5, Basophils (%) (Auto) 0.4, Neutrophils # (Auto) 2.68, Lymphocytes # (Auto) 1.94, Monocytes # (Auto) 0.41, Eosinophils # (Auto) 0.24, Basophils # (Auto) 0.02 05/06/17 16:49 Test 05/06/17 16:49 White Blood Count 5.30 K/uL (4.8-10.8) Red Blood Count 4.06 M/uL (4.2-5.4) Hemoglobin 10.4 g/dL (12.0-16.0) Hematocrit 33.2 % (37-47) Mean Corpuscular Volume 81.8 fL (80-100) Mean Corpuscular Hemoglobin 25.6 pg (25-34) Mean Corpuscular Hemoglobin Concent 31.3 g/dl (32-36) Platelet Count 208 K/uL (130-400) Mean Platelet Volume 10.1 fL (7.4-10.4) Neutrophils (%) (Auto) 50.6 % Lymphocytes (%) (Auto) 36.6 % Monocytes (%) (Auto) 7.7 % Eosinophils (%) (Auto) 4.5 % Basophils (%) (Auto) 0.4 % Neutrophils # (Auto) 2.68 K/uL (1.4-6.5) Lymphocytes # (Auto) 1.94 K/uL (1.2-3.4) Monocytes # (Auto) 0.41 K/uL (0.11-0.59) Eosinophils # (Auto) 0.24 K/uL (0-0.5) Basophils # (Auto) 0.02 K/uL (0-0.2) RDW Standard Deviation 49.0 fL (36.4-46.3) RDW Coefficient of Variation 16.4 % (11.5-14.5) Immature Granulocyte % (Auto) 0.2 % Immature Granulocyte # (Auto) 0.01 K/uL (0.00-0.02) Anion Gap 7.0 mmol/L (3-11) Est Creatinine Clear Calc Drug Dose 175.4 ml/min Estimated GFR () 142.0 Estimated GFR (Non- 122.5 BUN/Creatinine Ratio 18.3 (10-20) Calcium Level 8.0 mg/dl (8.5-10.1) Magnesium Level 2.1 mg/dl (1.8-2.4) Total Bilirubin 0.2 mg/dl (0.2-1) Direct Bilirubin < 0.1 mg/dl (0-0.2) Aspartate Amino Transf (AST/SGOT) 87 U/L (15-37) Alanine Aminotransferase (ALT/SGPT) 52 U/L (12-78) Alkaline Phosphatase 107 U/L (45-117) Troponin I < 0.015 ng/ml (0-0.045) Total Protein 6.3 gm/dl (6.4-8.2) Albumin 3.0 gm/dl (3.4-5.0) Thyroid Stimulating Hormone (TSH) 0.090 uIu/ml (0.300-4.500) Free Thyroxine 0.98 ng/dl (0.80-1.60) Laboratory results per my review. Medications Administered Medications (Trade) Dose Ordered Sig/Gray Route Start Time Stop Time Status Last Admin Dose Admin Sodium Chloride 1,000 ml @ 999 mls/hr Q1H1M STAT IV 05/06/17 15:59 05/06/17 16:59 DC 05/06/17 17:05 999 MLS/HR Albuterol/ Ipratropium (Duoneb) 3 ml NOW STAT INH 05/06/17 15:59 05/06/17 16:02 DC 05/06/17 17:18 3 ML Acetaminophen (Tylenol Tab) 1,000 mg NOW STAT PO 05/06/17 18:36 05/06/17 18:38 DC 05/06/17 19:02 1,000 MG Levofloxacin (Levaquin Tab) 500 mg NOW STAT PO 05/06/17 19:24 05/06/17 19:25 DC 05/06/17 19:43 500 MG ECG Indication: SOB/dyspnea Rate (beats per minute): 65 Rhythm: normal sinus Findings: no ectopy, other (no acute ST segment abnormalities) Change: no significant change (from 09/05/16) ED Course 1553: The patient was evaluated in room A2. A complete history and physical examination were performed. 1559: Ordered Duoneb 3 ml INH, NSS 1000 ml @ 999 mls/hr IV. 1835: Ordered Tylenol Tab 1000 mg PO. 1923: Ordered Levaquin Tab 500 mg PO. Medical Decision Differential diagnosis: Etiologies such as fracture, dislocation, intra-abdominal, pneumothorax, intrathoracic , intracranial, neurologic, as well as other traumatic pathologies were entertained. Nursing notes reviewed. Patient's previous electronic medical records reviewed. The patient is a 31-year-old female who presented to the emergency department with multiple complaints. She states that she fell over a week ago striking her head as well as her left leg and left hand. She states that she was seen by her primary care physician for this pain and had x-rays ordered but she did not follow-up for these x-rays. The patient also states that she's been falling very frequently. She claims that she fell 15 times yesterday. The patient did not have orthostasis. I discussed the patient's laboratory and radiographic studies with her. The patient did not wish to give us a urinalysis at this time. The patient's PD M P revealed multiple controlled substances which were filled as recently as beginning of this month. She states that she cannot get her pain medications filled because her primary pain clinic doctor left town. She was encouraged to follow-up with her primary care physician this is possible and rest. She was also encouraged to continue all medications as prescribed. I also encouraged her to return to the emergency department immediately if symptoms change worsen or the need arises. I explained to the patient that I would not give her pain medications because I was very concerned about the frequent falls. I was concerned she was given any narcotic pain medication she may be more likely to fall on the suffer a significant injury. Medication Reconcilliation Current Medication List: was personally reviewed by me Blood Pressure Screening Patient's blood pressure: Normal blood pressure Impression Primary Impression: Multiple falls Additional Impressions: Head injury Contusion of left thigh Contusion of left hand Bronchitis Scribe Attestation The scribe's documentation has been prepared under my direction and personally reviewed by me in its entirety. I confirm that the note above accurately reflects all work, treatment, procedures, and medical decision making performed by me. Departure Information Dispostion Home / Self-Care Prescriptions Levofloxacin (Levaquin) 500 Mg Tab 500 MG PO DAILY, #7 TAB Prov: Renato Dominique, DO 05/06/17 Referrals No Doctor, Assigned (PCP) Héctor Baxter PA-C Patient Instructions Bronchitis Acute, ED Contusion Hand, ED Contusion Soft Tissue, [facility] Additional Instructions [facility] to schedule a follow up appointment. Avoid tobacco products. Rest and avoid any strenous activity Problem Qualifiers Additional Impressions: Head injury Encounter type: initial encounter Qualified Codes: S09.90XA - Unspecified injury of head, initial encounter Contusion of left thigh Encounter type: initial encounter Qualified Codes: S70.12XA - Contusion of left thigh, initial encounter Contusion of left hand Encounter type: initial encounter Qualified Codes: S60.222A - Contusion of left hand, initial encounter
[2017-05-06] MEDS ORDERED: LURA80TA PO (16:26)
[2017-05-06] MEDS ORDERED: PROP20TA67 PO (16:26)
[2017-05-06] MEDS ORDERED: CMBIN INH (16:26)
[2017-05-06] MEDS ORDERED: PREG200C PO (16:27)
[2017-05-06 16:57] LABS: BASO % 0.4 %; BASO ABS # 0.02 K/uL (0-0.2); COMPLETE YES; EOS % 4.5 %; HEMATOCRIT 33.2 % (37-47); IG% 0.2 %; LYMPH % 36.6 %; LYMPH ABS # 1.94 K/uL (1.2-3.4); MEAN CELL VOLUME 81.8 fL (80-100); MEAN CORPUSCULAR HEMOGLOBIN 25.6 pg (25-34); MEAN CORPUSCULAR HGB CONC 31.3 g/dl (32-36); MEAN PLATELET VOLUME 10.1 fL (7.4-10.4); MONO % 7.7 %; NEUT % 50.6 %; PLATELET COUNT 208 K/uL (130-400); RED BLOOD COUNT 4.06 M/uL (4.2-5.4)
--- NOTE | 2017-05-06 17:12 | DIAGNOSTIC IMAGING REPORT ---
HEAD WITHOUT CONTRAST (CT) CLINICAL HISTORY: 31 years-old Female with EVALUATE ALTERED MENTAL STATUS/WEAKNESS. Acute altered mental status with recent fall TECHNIQUE: Multiple axial CT images of the head were obtained without contrast. A dose lowering technique was utilized adhering to the principles of ALARA. CT DOSE: 1016.79 mGy.cm COMPARISON: CT cervical spine of same day, CT head 03/18/2013. FINDINGS: No acute intracranial hemorrhage, midline shift, intracranial mass, hydrocephalus, territorial ischemia or abnormal extra-axial collection. The calvarium is intact. The mastoid air cells, and middle ear cavities are clear. Mild mucosal thickening of the imaged ethmoid air cells. IMPRESSION: No acute intracranial abnormality. The above report was generated using voice recognition software. It may contain grammatical, syntax or spelling errors. Electronically signed by: Ammon Ring M.D. 05/06/2017 5:10 PM Dictated Date/Time: 05/06/2017 5:08 PM
[2017-05-06 17:15] LABS: ALT/SGPT 52 U/L (12-78); AST/SGOT 87 U/L (15-37); BLOOD UREA NITROGEN 10 mg/dl (7-18); BUN/CREATININE RATIO 18.3 (10-20); CARBON DIOXIDE 23 mmol/L (21-32); CHLORIDE 110 mmol/L (98-107); CREATININE 0.56 mg/dl (0.60-1.20); GLUCOSE 86 mg/dl (70-99); MAGNESIUM 2.1 mg/dl (1.8-2.4); POTASSIUM 3.7 mmol/L (3.5-5.1); SODIUM 140 mmol/L (136-145)
[2017-05-06] MEDS ORDERED: CLON0.5T3 PO (17:18)
[2017-05-06] MEDS ORDERED: MORP1CAP PO (17:18)
[2017-05-06] MEDS ORDERED: ALPR1TAB3 PO (17:18)
[2017-05-06] MEDS ORDERED: SUCR1TAB29 PO (17:18)
--- NOTE | 2017-05-06 17:18 | DIAGNOSTIC IMAGING REPORT ---
CERVICAL SPINE W/O CLINICAL HISTORY: 31 years-old Female with fall. Acute neck pain with recent fall COMPARISON: CT head of same day. TECHNIQUE: Multiple axial CT images of the cervical spine were obtained without contrast. A dose lowering technique was utilized adhering to the principles of ALARA. FINDINGS: Vertebral body heights and alignment are normal. No fracture or subluxation is identified. The intervertebral disc spaces are preserved. No significant central canal or neural foraminal stenosis is identified. Mild facet arthrosis is noted bilaterally at C6-C7 and C7-T1. The cervical soft tissues appear unremarkable. Partially imaged groundglass opacities of the left lung apex are noted. Thyroid appears enlarged and heterogeneous. IMPRESSION: 1. No acute cervical spine fracture or subluxation. 2. Enlarged heterogeneous thyroid suggests multinodular goiter. 3. Partially imaged groundglass opacities of the left lung apex are nonspecific and may reflect scarring, pneumonitis or atelectasis. The above report was generated using voice recognition software. It may contain grammatical, syntax or spelling errors. Electronically signed by: Ammon Ring M.D. 05/06/2017 5:17 PM Dictated Date/Time: 05/06/2017 5:12 PM
[2017-05-06] MEDS ORDERED: ZONI100C39 PO (17:19)
[2017-05-06 17:26] LABS: ALKALINE PHOSPHATASE 107 U/L (45-117)
[2017-05-06 17:37] VITALS: O2SAT 98
[2017-05-06] MEDS ORDERED: ACETAMINOPHEN 500 MG TAB PO STA (18:36)
--- NOTE | 2017-05-06 18:43 | DIAGNOSTIC IMAGING REPORT ---
L HAND MIN 3 VIEWS ROUTINE HISTORY: 31 years-old Female fall acute left hand pain status post fall COMPARISON: None available TECHNIQUE: 3 views of the left hand FINDINGS: Mild dorsal hand soft tissue swelling. There is no acute fracture, dislocation, significant degenerative changes or opaque foreign body. IMPRESSION: Mild dorsal hand soft tissue swelling without acute bony abnormality. The above report was generated using voice recognition software. It may contain grammatical, syntax or spelling errors. Electronically signed by: Ammon Ring M.D. 05/06/2017 6:41 PM Dictated Date/Time: 05/06/2017 6:40 PM
--- NOTE | 2017-05-06 18:45 | DIAGNOSTIC IMAGING REPORT ---
PELVIS 1 OR 2 VIEW ROUTINE, L FEMUR 2 VIEWS ROUTINE HISTORY: 31 years-old Female fall acute pelvic and left hip pain status post fall COMPARISON: Acute abdominal series radiographs 09/05/2016 TECHNIQUE: Single AP view of the pelvis with 2 views of the left femur FINDINGS: PELVIS: No acute fracture, dislocation or significant degenerative changes. Bilateral hips are located. Soft tissues are unremarkable. Surgical suture material is noted over the right lower abdomen. LEFT FEMUR: No acute fracture, dislocation or significant degenerative changes. Soft tissues are unremarkable. Knee joint appears intact. IMPRESSION: 1. No acute fracture or subluxation. 2. No significant degenerative changes. The above report was generated using voice recognition software. It may contain grammatical, syntax or spelling errors. Electronically signed by: Ammon Ring M.D. 05/06/2017 6:43 PM Dictated Date/Time: 05/06/2017 6:42 PM
--- NOTE | 2017-05-06 18:46 | DIAGNOSTIC IMAGING REPORT ---
CHEST 2 VIEWS ROUTINE HISTORY: 31 years-old Female fall acute chest congestion with recent fall COMPARISON: Acute abdominal series radiographs 09/05/2016 TECHNIQUE: PA and lateral views of the chest FINDINGS: Cardiac mediastinal and hilar silhouettes are within normal limits. No pneumothorax, pleural effusion, focal airspace consolidation or overt pulmonary edema. The bones of the chest appear grossly intact. Surgical clips of the right upper abdomen suggest prior cholecystectomy. IMPRESSION: No acute cardiopulmonary process. The above report was generated using voice recognition software. It may contain grammatical, syntax or spelling errors. Electronically signed by: Ammon Ring M.D. 05/06/2017 6:45 PM Dictated Date/Time: 05/06/2017 6:44 PM
[2017-05-06] MEDS ORDERED: LEVOFLOXACIN 250 MG TAB PO STA (19:24)
[2017-05-06] MEDS ORDERED: LEVO-366 PO (19:26)
[2017-05-06 19:49] VITALS: BP 114/72; PULSE 71; O2SAT 97
[2017-05-06] MEDS ORDERED: NRN600 PO (23:22)
[2017-05-06] MEDS ORDERED: CHLO1TAB15 PO (23:22)
[2017-05-06] MEDS ORDERED: HYDR2TAB48 PO (23:22)
[2017-05-06] MEDS ORDERED: MIRT30TA3 PO (23:22)
[2017-05-06] MEDS ORDERED: ROPI1TAB PO (23:24)
[2017-05-06] MEDS ORDERED: CARI350T28 PO (23:24)
[2017-05-06] MEDS ORDERED: ALBINS/ INH (23:25)
== END 2017-05-06 19:46 | disposition home or self-care (01) ==
LOC: C.EDB 15:36 → C.EDA 19:46
DX: S09.90XA Unspecified injury of head, initial encounter (principal); S70.12XA Contusion of left thigh, initial encounter; S60.222A Contusion of left hand, initial encounter; W19.XXXA Unspecified fall, initial encounter; Y92.89 Other specified places as the place of occurrence of the external cause; J40 Bronchitis, not specified as acute or chronic; F41.9 Anxiety disorder, unspecified; N17.9 Acute kidney failure, unspecified; F31.9 Bipolar disorder, unspecified; F32.9 Major depressive disorder, single episode, unspecified; K21.9 Gastro-esophageal reflux disease without esophagitis; B19.20 Unspecified viral hepatitis C without hepatic coma; F43.10 Post-traumatic stress disorder, unspecified; Z86.14 Personal history of Methicillin resistant Staphylococcus aureus infection; Z87.442 Personal history of urinary calculi; Z83.3 Family history of diabetes mellitus; Z82.49 Family history of ischemic heart disease and other diseases of the circulatory system; Z84.1 Family history of disorders of kidney and ureter; F17.210 Nicotine dependence, cigarettes, uncomplicated; Z79.899 Other long term (current) drug therapy